=== PATIENT | male | born 1980 | race African-American/Black ===

== ENCOUNTER 2018-01-07 19:03 | Emergency (ER) | payer MEDICAID ==
[2018-01-07] MEDS ORDERED: SODIUM CHLORIDE 0.9% 1,000 ML IV ONE (19:36)
--- NOTE | 2018-01-07 19:43 | ED Physician Documentation ---
History of Present Illness - Stated complaint Stated Complaint: DIZZINESS - Chief complaint Chief Complaint: General - History obtained from History obtained from: Patient - History of Present Illness Timing: Other (This is a 37-year-old gentleman visiting from [place]. He has an ongoing dental infection for which it sounds like he had a root canal of a right maxillary premolar. They told him on x-ray that the infection went quite far up. Over the last couple of months he has noted some odd symptoms including passing out when he laughs, dizziness, bilateral hand paresthesias. He did some reading on the Internet and has specific concerns about cranial abscess related to his dental infection. He is on amoxicillin right now, he does not have diarrhea.) Review of Systems Constitutional: denies: Fever, Chills Cardiac: denies: Chest pain / pressure, Palpitations Respiratory: denies: Dyspnea, Cough PD PAST MEDICAL HISTORY - Present Medications Home Medications: Ambulatory Orders Medication Instructions Recorded Confirmed Amox/Clav 875/125 [Augmentin] 1 each PO Q12H #14 tablet 01/07/18 Amoxicillin 500 mg PO TID 01/07/18 01/07/18 - Allergies Allergies/Adverse Reactions: Allergies Allergy/AdvReac Type Severity Reaction Status Date / Time No Known Drug Allergies Allergy Verified 01/07/18 19:32 PD ED PE NORMAL - Vitals Vital signs reviewed: Yes - General General: Alert and oriented X 3, No acute distress - HEENT HEENT: PERRL, EOMI, Other (There is a temporary cavity in a right maxillary premolar without facial swelling or tenderness.) - Neck Neck: Supple, no meningeal sign, No bony TTP - Cardiac Cardiac: RRR, No murmur - Respiratory Respiratory: No respiratory distress, Clear bilaterally - Abdomen Abdomen: Soft, Non tender - Back Back: No CVA TTP, No spinal TTP - Derm Derm: Normal color, Warm and dry - Extremities Extremities: No deformity, No edema, No calf tenderness / cord - Neuro Neuro: Alert and oriented X 3, 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 Eye Opening: Spontaneous Motor: Obeys Commands Verbal: Oriented GCS Score: 15 - Psych Psych: Normal mood, Normal affect Results - Vitals Vitals: Vital Signs - 24 hr 01/07/18 01/07/18 19:30 20:45 Temperature 36.7 C 36.8 C Heart Rate 52 L 54 L Respiratory 17 16 Rate Blood Pressure 127/77 135/89 H O2 Saturation 100 100 Oxygen O2 Source Room air - EKG (time done) 2006 Rate: Rate (enter#) (47) Rhythm: Sinus bradycardia (with sinus arrythmia) [place]: Normal Intervals: Normal [place] QRS: Normal Ischemia: Normal ST segments Computer interpretation: Disagree with computer - Labs Labs: Laboratory Tests 01/07/18 01/07/18 19:41 19:41 WBC 5.8 RBC 5.15 Hgb 14.9 Hct 45.4 MCV 88.1 MCH 28.8 MCHC 32.7 RDW 14.4 Plt Count 181 MPV 8.3 Neut # (Auto) 3.7 Lymph # (Auto) 1.3 L [place] # (Auto) 0.7 Eos # (Auto) 0.2 Baso # (Auto) 0.0 Absolute Nucleated RBC 0.00 Nucleated RBC % 0.1 Sodium 136 Potassium 4.1 Chloride 101 Carbon Dioxide 26 Anion Gap 9.0 BUN 9 Creatinine 1.1 Estimated GFR (MDRD) 92 Glucose 85 Calcium 9.1 Total Bilirubin 1.0 AST 23 ALT 18 Alkaline Phosphatase 44 Total Protein 7.1 Albumin 4.3 Globulin 2.8 Albumin/Globulin Ratio 1.5 Lipase 28 - Rads (name of study) CT Head Radiology: EMP read contemporaneously (normal) PD MEDICAL DECISION MAKING - ED course ED course: He presents with very subacute symptoms of bilateral neuropathy which is mild, syncope with laughing. Hard to place In a specific diagnostic box. He has a specific concern about his dental infection having spread to his brain which is unlikely and disproven via diagnostics. - Sepsis Event Vital Signs: Vital Signs - 24 hr 01/07/18 01/07/18 19:30 20:45 Temperature 36.7 C 36.8 C Heart Rate 52 L 54 L Respiratory 17 16 Rate Blood Pressure 127/77 135/89 H O2 Saturation 100 100 Oxygen O2 Source Room air Departure - Departure Disposition: 01 Home, Self Care Clinical Impression: Neuropathy, Dental infection Syncope Qualifiers: Syncope type: vasovagal syncope Qualified Code(s): R55 - Syncope and collapse Condition: Good Record reviewed to determine appropriate education?: Yes Instructions: ED Fainting Unkn Cause Prescriptions: Amox/Clav 875/125 [Augmentin] 1 each PO Q12H #14 tablet Comments: Call your doctor to arrange a follow-up appointment, make the next available appointment. In the interim, return anytime if worse or if new symptoms develop. Discharge Date/Time: 01/07/18 20:46
[2018-01-07 19:47] LABS: BASOPHILS % (AUTO) 0.7 %; EOSINOPHILS # (AUTO) 0.2 10^3/uL (0.0-0.7); EOSINOPHILS % (AUTO) 3.1 %; HGB - HEMOGLOBIN 14.9 g/dL (14.0-18.0); LYMPHOCYTES # (AUTO) 1.3 10^3/uL (1.5-3.5); LYMPHOCYTES % (AUTO) 21.7 %; MEAN CORPUSCULAR HEMOGLOBIN 28.8 pg (27.0-31.0); MEAN CORPUSCULAR HGB CONC 32.7 g/dL (32.0-36.0); MEAN CORPUSCULAR VOLUME 88.1 fL (80.0-94.0); MEAN PLATELET VOLUME 8.3 fL (7.4-11.4); MONOCYTES # (AUTO) 0.7 10^3/uL (0.0-1.0); MONOCYTES % (AUTO) 11.4 %; NEUTROPHILS # (AUTO) 3.7 10^3/uL (1.5-6.6); NEUTROPHILS % (AUTO) 63.1 %; PLT - PLATELET COUNT 181 10^3/uL (130-450); RED BLOOD COUNT 5.15 10^6/uL (4.70-6.10); RED CELL DISTRIBUTION WIDTH 14.4 % (12.0-15.0); WHITE BLOOD COUNT 5.8 x10^3/uL (4.8-10.8)
[2018-01-07 19:59] LABS: ALBUMIN 4.3 g/dL (3.2-5.5); ALBUMIN/GLOBULIN RATIO 1.5 (1.0-2.2); CALCIUM 9.1 mg/dL (8.5-10.3); CREATININE 1.1 mg/dL (0.6-1.2); TOTAL PROTEIN 7.1 g/dL (6.7-8.2)
--- NOTE | 2018-01-07 20:05 | CT Report ---
Procedure Date: 01/07/2018 Accession Number: [id number] / [id number] Procedure: CT - Head W/O CPT Code: FULL RESULT: EXAM: CT HEAD EXAM DATE: 01/07/2018 07:56 PM. CLINICAL HISTORY: Bilateral arm weakness. COMPARISON: None. TECHNIQUE: Multiaxial CT images were obtained from the foramen magnum to the vertex. Reformats: Coronal. IV contrast: None. In accordance with CT protocol optimization, one or more of the following dose reduction techniques were utilized for this exam: automated exposure control, adjustment of mA and/or KV based on patient size, or use of iterative reconstructive technique. FINDINGS: Parenchyma: No intraparenchymal hemorrhage. No evidence of mass, midline shift, or CT findings of infarction. Mccann-white differentiation is distinct. Extraaxial Spaces: Normal for age. No subdural or epidural collections identified. Ventricles: Normal in size and position. Sinuses and Orbits: Imaged paranasal sinuses, orbits, and mastoids show no significant abnormality. Bones: No evidence of fracture or calvarial defect. Other: None. IMPRESSION: Normal head CT. [facility]
[2018-01-07] MEDS ORDERED: AMOX/CLAV 875 MG/125 MG TABLET PO STA (20:32)
[2018-01-07 20:46] VITALS: BP 135/89
== END 2018-01-07 20:46 | disposition home or self-care (01) ==
LOC: ED 19:03
DX: G62.9 Polyneuropathy, unspecified (principal); K04.7 Periapical abscess without sinus; R55 Syncope and collapse; R00.1 Bradycardia, unspecified
CPT/HCPCS: 36415; 70450; 80053; 83690; 85025; 93005; 96360; 99283; 99284; A9270